=== PATIENT | female | born 1970 | race African-American/Black ===

== ENCOUNTER 2019-04-16 10:47 | Emergency (ER) | payer MEDICAID ==
[~2019-04-16] VITALS: Ht 177.8 cm; Wt 75.0 kg
[2019-04-16 11:29] VITALS: BP 135/85
[2019-04-16] MEDS: CEFTRIAXONE SODIUM 1 G/VIAL IM ONE ×2 (14:14→14:17)
== END 2019-04-16 14:32 | disposition home or self-care (01) ==
LOC: ER 10:47
DX: N61.1 Abscess of the breast and nipple (principal); L97.509 Non-pressure chronic ulcer of other part of unspecified foot with unspecified severity; E11.9 Type 2 diabetes mellitus without complications
CPT/HCPCS: 99281; 99283; J0696